=== PATIENT | female | born 1990 | race Caucasian/White ===

== ENCOUNTER 2017-01-27 18:23 | Emergency (ER) | payer OTHER | END 2017-01-27 19:40 | disposition home or self-care (01) | LOC: FER 18:23 | DX: R10.12 Left upper quadrant pain (principal); F41.9 Anxiety disorder, unspecified; F17.210 Nicotine dependence, cigarettes, uncomplicated; D17.1 Benign lipomatous neoplasm of skin and subcutaneous tissue of trunk; Z90.49 Acquired absence of other specified parts of digestive tract ==